=== PATIENT | male | born 1945 | race African-American/Black ===

== ENCOUNTER 2019-08-30 10:56 | Emergency (ER) | payer BC ==
[~2019-08-30] VITALS: Ht 188 cm; Wt 122.5 kg
[2019-08-30 11:18] VITALS: BP 133/79
== END 2019-08-30 11:35 | disposition home or self-care (01) ==
LOC: ER 10:56
DX: L25.9 Unspecified contact dermatitis, unspecified cause (principal); I10 Essential (primary) hypertension; E78.5 Hyperlipidemia, unspecified